=== PATIENT | female | born 1975 | race African-American/Black ===

== ENCOUNTER 2019-01-18 11:23 | Emergency (ER) | payer SELFPAY | END 2019-01-18 12:45 | disposition home or self-care (01) | LOC: ERS 11:23 | DX: K03.81 Cracked tooth (principal); K04.7 Periapical abscess without sinus; F17.210 Nicotine dependence, cigarettes, uncomplicated | CPT/HCPCS: 99282 ==

== ENCOUNTER 2022-07-01 11:58 | Emergency (ER) | payer SELFPAY | END 2022-07-01 15:14 | disposition home or self-care (01) | LOC: ERS 11:58 | DX: M79.604 Pain in right leg (principal); F17.210 Nicotine dependence, cigarettes, uncomplicated ==

== ENCOUNTER 2022-08-25 12:11 | Emergency (ER) | payer SELFPAY ==
[~2022-08-25 12:11] MED LIST: Iopamidol-370 76% 500 ML 1 ML ONE
[2022-08-25] MEDS ORDERED: Lidocaine 1% PF 5 ML VIAL ONE (14:42)
[2022-08-25] MEDS ORDERED: Ketorolac Tromethamine 30 MG/ML VIAL ONE (15:23)
[2022-08-25] MEDS ORDERED: Clindamycin/D5W 600 mg/50 ml Premix Bag ONE (15:24)
== END 2022-08-25 17:21 | disposition home or self-care (01) ==
LOC: ERS 12:11
DX: K04.7 Periapical abscess without sinus (principal); M27.2 Inflammatory conditions of jaws; L03.213 Periorbital cellulitis; F17.210 Nicotine dependence, cigarettes, uncomplicated
CPT/HCPCS: 41800; 70487; 96365; 96375; J1885; J3490; Q9967